=== PATIENT | female | born 1990 | race Caucasian/White ===

== ENCOUNTER 2016-07-08 22:45 | Inpatient (IN) | payer OTHER ==
[~2016-07-08] VITALS: Ht 175.3 cm; Wt 103.4 kg
[2016-07-09] MEDS ORDERED: Ondansetron 2 mg/mL 2 mL Inj IVPUSH ONE (00:55)
[2016-07-09] MEDS ORDERED: Lactated Ringer's 1,000 ML IV ONE (00:55)
[2016-07-09] MEDS ORDERED: Lactated Ringer's 1,000 ML IV PRN (02:56)
[2016-07-09] MEDS ORDERED: Methylergonovine 0.2 mg/mL Inj IM PRN ×2 (03:00→10:00)
[2016-07-09] MEDS ORDERED: fentaNYL-PF 50 mCg/mL 2 mL Inj IVPUSH PRN (03:00)
[2016-07-09] MEDS ORDERED: Oxytocin 30 Units/500 mL LR 30 UNITS in IV Premix 1 EACH IV PRN ×2 (03:00→10:00)
[2016-07-09] MEDS ORDERED: Ondansetron 2 mg/mL 2 mL Inj IVPUSH PRN ×2 (03:00→04:35)
[2016-07-09] MEDS ORDERED: Hemorrhage Kit, Post Partum XX ONE ×2 (03:00→10:00)
[2016-07-09] MEDS ORDERED: Sodium Chloride LOK Flush 10 mL Syringe IVFLUSH PRN (03:00)
[2016-07-09] MEDS ORDERED: Carboprost 250 mCg/mL Inj IM PRN ×2 (03:00→10:00)
[2016-07-09] MEDS ORDERED: Oxytocin 10 Unit/mL Inj IM PRN ×2 (03:00→10:00)
[2016-07-09 03:05] LABS: Mean Corpuscular Hemoglobin 31.1 pg (27.0-35.0); Mean Corpuscular Volume 91.1 fL (81-100)
[2016-07-09] MEDS ORDERED: Lactated Ringer's 1,000 ML IV SCH ×2 (04:34→09:59)
[2016-07-09] MEDS ORDERED: Lactated Ringer's 500 ML IV ONE (04:34)
[2016-07-09] MEDS ORDERED: fentaNYL 2 mCg/mL-Bupiv 0.125% 100 ML EPIDURAL SCH (04:35)
[2016-07-09] MEDS ORDERED: EPHEDrine Sulfate 50 mg/mL Inj IVPUSH PRN (04:35)
[2016-07-09] MEDS ORDERED: Atropine 1 mg/10 mL (Code) Syringe IVPUSH PRN (04:35)
--- NOTE | 2016-07-09 05:20 | PCM.HPANE ---
Patient Data Surgeon Admitting Provider:Gris De Jesus MD Attending Provider:Gris De Jesus MD Primary Care Physician:Sapna Other Provider:Michael Monique Anesthesia Reason for Visit Term Labor TERM LABOR Ht/WT & BMI Body Mass Index Allergies Coded Allergies: No Known Allergies (Unverified , 07/09/16) Past Anesthesia History Anesthesia History: Denies:: Abnormal Airway, Anesthesia Reactions, Difficult Intubation, Fam Anesthesia Reaction, Fam Malignant Hypertherm, Malignant Hyperthermia History History of ENT Problems?: No HEENT History: Denies:: Abnormal Airway Cataracts Difficult Intubation Dysphagia Glaucoma Hearing Problem Sinus Problem TMJ Denture Type: None Teeth Condition: Within Normal Limits Hx of Heart Problems?: No Cardiovascular History: Denies:: AICD Abdominal Aortic Aneurism Atrial Fibrillation Cardiac Surgery Chest Pain Congestive Heart Failure Coronary Artery Disease Edema Heart Murmur Hypertension Irregular Heartbeat Pacemaker Peripheral Vascular Rheumatic Fever Thrombophlebitis Valvular Heart Disease Hx of Respiratory Problem?: No Respiratory History: Denies:: Asthma COPD Chest Surgery Cough Dyspnea Emphysema Hemoptysis Oxygen Administration Pneumonia Pulmonary Embolism Tuberculosis Use of C-PAP Machine Use of Inhalers / NEBS Hx Neurologic Problems?: No Neurological History: Denies:: Alzheimer's Disease CVA Dementia Dizziness Headaches Multiple Sclerosis Parkinson's Disease Peripheral Neuropathy Seizures TIA Hx of GI Problems?: No Gastrointestinal History: Positive for:: Gastroesphageal Reflux Denies:: Cirrhosis Diverticulitis Gall Bladder Disease Gastrointestinal Bleeding Heartburn Hepatitis Hiatal Hernia Liver Disease Rectal Bleeding Hx of Problems?: No Genitourinary History: Denies:: HX of Hemodialysis Kidney Stones Urinary Tract Infection Female Hx: Positive for:: Currently Denies:: Endometriosis Pelvic Inflammatory Problems with Breasts? Skin History: Denies:: History Skin Disorders? Pressure Ulcers Hx Musculoskeletal Problems?: No Musculoskeletal History: Denies:: Back Injury Degenerative Joint Fibromyalgia Joint Replacement Musculoskeletal Trauma Myasthenia Gravis Osteoarthritis Rheumatoid Arthritis Systemic Lupus Hx of Psycho/Social Problems?: No Psycho Social History: Denies:: Anxiety Bipolar Disorder Hx Depression Suicide Attempt Hx Surgeries?: No Hx Any Other Health Problems?: No History Blood Transfusions: Denies:: Accept Blood Products? Blood Transfuse Reaction Blood Transfusions Hx Diabetes: No Smoking Status: Never Smoker Stop/Bang Risk Assessment Category Category 1A: Patient has history of documented sleep apnea, and HAS NOT received any narcotic, sedative or anesthesia administration during this stay. Category 1B: Patient has history of documented sleep apnea, and HAS received any narcotic , sedative or anesthesia administration during this stay Category 2: Patient has SUSPECTED Obstructive Sleep Apnea, and HAS received any narcotic , sedative or anesthesia administration during this stay. Category 3: Patient has SUSPECTED Obstructive Sleep Apnea and HAS NOT received narcotic, sedative or anesthesia administration during this stay. Category 4: Outpatient in Procedural Areas with known sleep apnea or who screen positive for High Risk via the STOP/BANG questionnaire. Exam Exam General Appearance: Alert, Oriented X3, Cooperative HEENT/AIRWAY: MP 2 Lungs: Clear to Auscultation Heart: Exam Unremarkable Meds/Labs/Diagnostics Admission Meds Current Medications Lactated Ringer's (Lr) 1,000 ml @ 0 mls/hr Q0M ONCE IV Last administered on 01:18; Start 07/09/16 at 00:55; Stop 07/09/16 at 00:56; Status DC Ondansetron HCl (Zofran Inj) 8 mg ONCE ONCE IVPUSH Last administered on 01:19; Start 07/09/16 at 00:55; Stop 07/09/16 at 00:56; Status DC Labs Test 07/09/16 01:10 White Blood Count 12.0th/mm3 (3.8-10.1) Red Blood Count 4.18mil/mm3 (3.90-5.20) Hemoglobin 13.0g/dL (12.0-15.6) Hematocrit 38.1% (35.0-46.0) Mean Corpuscular Volume 91.1fL (81-100) Mean Corpuscular Hemoglobin 31.1pg (27.0-35.0) Mean Corpuscular Hemoglobin Concent 34.1% (32.0-37.0) Red Cell Distribution Width 13.0% (12.3-15.4) Platelet Count 248bil/L (150-400) Plan Impression Patient chart reviewed, patient interviewed and anesthestic plan with risks, benefits, and alternatives discussed, and informed consent obtained. ASA Physical Status: ASA2 Mod Systemic Disease Anesthetic Plan: Epidural Bene/Risks/Altern/Consents: Yes HP Complete Prior to Induction: Yes Phan Whatley MD July 09, 2016 04:34
--- NOTE | 2016-07-09 07:35 | HP ---
[address] [address] HISTORY AND PHYSICAL PATIENT: CARMITA WYATT : 1990 MR#: [id number] ADMIT: 07/09/2016 JOB ID: [id number] HISTORY OF PRESENT ILLNESS: This is a 26-year-old female, 1 para 0, at 39 weeks . She presented to [facility] for contractions. When she presented to the [facility], she was vernon every 3-4 minutes. Her cervix was noted to be 2 cm dilated. Expectant management was down for 2 hours and re-examined. She was noted to be 4 cm dilated, 7% effaced. She is vernon every 3-4 minutes and tracing was category 1. This is a patient of our clinic. She started from 1st trimester with routine follow up. During her visit, it was noted that her blood type is A positive. Her H and H is 40/31.2. Varicella immune, rubella immune, RPR negative, HBsAg negative, HIV negative, and her GCT was 107. Strep B was negative. Her hCG was negative. She has no known drug allergies. PAST MEDICAL HISTORY: Eczema. PAST SURGICAL HISTORY: Declines. OBSTETRICAL HISTORY: This is her first . GYNECOLOGIC HISTORY: Not complicated. SOCIAL HISTORY: She is not smoking, not drinking alcohol, and declined drug usage. FAMILY HISTORY: Not significant, except that her maternal grandfather and mother both had a stroke. PHYSICAL EXAMINATION: Her blood pressure is in normal range. Pulse in normal range. She is afebrile. Cardiac: RR. No murmur. Pulmonary: Bilaterally clear. Abdomen; soft, . Contraction every 3-4 minutes. Tracing category 1. Cervix 4 cm dilated, 75% effaced. Extremities: Nontender. ASSESSMENT AND PLAN: 1. A 36-year-old female, 1 para 0, at 39 weeks , active labor. Will admit her to [facility]. 2. No antibiotic needed for negative GBS status. 3. The patient can get epidural for pain management if she prefers to. She can also get IV medication at this time if she prefers to. 4. At this time, we will do expected management to watch for labor progress.
[2016-07-09] MEDS ORDERED: Sodium Chloride LOK Flush 10 mL Syringe IVFLUSH SCH (08:30)
[2016-07-09] MEDS ORDERED: LANOlin HPA 7 Gm Ointment TOPICAL PRN (10:00)
[2016-07-09] MEDS ORDERED: Benzocaine (Dermoplast) 20% 60 Gm Spray TOPICAL PRN (10:00)
[2016-07-09] MEDS ORDERED: oxyCODONE-Acetamin 5-325 mg Tablet PO PRN (10:00)
[2016-07-09] MEDS ORDERED: Witch Hazel-Glycerin Pads TOPICAL PRN (10:00)
[2016-07-09] MEDS ORDERED: Measles-Mumps-Rubella Vaccine 0.5 mL Inj SUBQ ONE (10:00)
[2016-07-09] MEDS: Ascorbic Acid 500 mg Tablet PO SCH (17:52)
--- NOTE | 2016-07-09 19:46 | OP ---
[address] [address] OPERATIVE REPORT PATIENT: CARMITA WYATT : 1990 MR#: [id number] ADMIT: 07/09/2016 JOB ID: [id number] DATE OF SURGERY: 07/09/2016 SURGEON: Harriet Warren MD. PREOPERATIVE DIAGNOSIS(ES): Thirty-nine week intrauterine in active labor. POSTOPERATIVE DIAGNOSIS(ES): Thirty-nine week intrauterine in active labor. PROCEDURE PERFORMED: Spontaneous vaginal delivery. FINDINGS: Live-born male , born on July 09, 2017, at 0931 hours with Apgars of 9 at one minute and 10 at five minutes. 7#7oz COMPLICATIONS: None apparent. ESTIMATED BLOOD LOSS: 300 cc. FLUID REPLACEMENT: Crystalloid in labor. ANESTHESIA: Epidural. INDICATIONS: This is a 26-year-old, G1, P0, at approximately 39 weeks gestational age, who presented to the Center in the marine engineering consultant hours of July 09, complaining of regular uterine contractions. She was checked and noted to be 2 cm dilated. She was monitored and cervical change was noted to 4 cm dilated, at which point in time, she was admitted in active labor. She spontaneously ruptured on her own and an epidural was placed for pain relief. She progressed to complete around 7:30 a.m. on July 09, and after laboring down for less than an hour, she began to push, bringing the infant's vertex to the perineum. PROCEDURE: The patient was noted to be complete and pushing so she was placed in dorsal lithotomy position, prepped and draped in the usual sterile fashion for delivery. She pushed and head did deliver spontaneously in the direct OA position. The anterior shoulder delivered easily, followed by the posterior shoulder. The remainder of the then was easily delivered. There was a compound presentation with the infant's hand being near its face. After 60-second cord clamping delay, the cord was then clamped and cut and the was attended to by nursing personnel on the mother's abdomen, where the had been placed following delivery. Cord blood was then obtained. The placenta delivered intact spontaneously and was passed off the table. Thirty units of Pitocin was placed in the IV bag to firm the uterus. Examination of the cervix and vaginal vault did not reveal any lacerations. Examination of the perineum showed a second-degree laceration which was repaired with 3-0 Vicryl in the usual running fashion. There was also a 1 cm right perilabial laceration that was repaired with two interrupted stitches of 4-0 Vicryl. The patient tolerated this procedure well. Recovered in labor and delivery with her infant. All sponge, needle, and instrument counts were correct at the completion of the procedure. HUSAM
[2016-07-10 07:15] LABS: Mean Corpuscular Hemoglobin 30.2 pg (27.0-35.0); Mean Corpuscular Volume 93.1 fL (81-100)
--- NOTE | 2016-07-10 07:28 | PCM.DIOB ---
Obstetrical Disch Instruction Date of Service: July 10, 2016 Dates of Hospitalization Date of Hospital Admission July 09, 2016 at 02:50 Providers Admitting Physician: Gris De Jesus MD Primary Care Physician: Sapna Attending Physician: Gris De Jesus MD Discharge Diagnosis Discharge Diagnosis s/p spontaneous vaginal delivery Problems: Diet Discharge Diet: No restrictions Activity Discharge Activity-General: Pelvic Rest for 6 weeks, Be up and about, Balance rest and activity, Activity as pain allows Dressing and Incisional Care Hygiene: May shower, NO bathtub, hot tub or whirlpool, Sitz bath, Dermoplast spray, Witch Bettye pads Follow Up Plan Follow-up appointment: Weeks (6) Call your provider for: Fever or Chills, Shortness of breath, Heavy vaginal bleeding, Red painful breasts, Other (Fevers or chills, malodorous vaginal discharge ) Harriet Warren MD July 10, 2016 07:28
[2016-07-10] MEDS ORDERED: IBUP800T28 PO (07:30)
[2016-07-10] MEDS ORDERED: DOCU-41 PO (07:30)
[2016-07-10 07:35] VITALS: BP 110/73; PULSE 73; RESP 16
--- NOTE | 2016-07-10 08:13 | DIS ---
[address] [address] DISCHARGE SUMMARY PATIENT: CARMITA WYATT : 1990 MR#: [id number] ADMIT: 07/09/2016 JOB ID: [id number] DIS: ADMISSION DIAGNOSES: A 39 week intrauterine in active labor. DISCHARGE DIAGNOSIS: Status post spontaneous vaginal delivery with a liveborn male , born on July 09, 2017, at 0931 hours with Apgars of 9 at 1 minute, 10 at 5 minutes. weight is 7 pounds 7 ounces. PROCEDURE PERFORMED: Spontaneous vaginal delivery. REASON FOR ADMISISON AND HOSPITAL COURSE: This is a 26-year-old, G 1, P 0, who initially presented at 39 weeks gestational age on the fire prevention officer hours of July 09, 2016, complaining of regular uterine contractions. She was checked and noted to be 2 cm dilated and was monitored where at which point she exhibited cervical change to 4 cm dilated. She was then admitted in active labor. She spontaneously ruptured light meconium-stained amniotic fluid in the fire prevention officer hours of the and she progressed to complete by 7:30 a.m. on the same day. After laboring down for approximately 45 minutes to an hour she then began to push, bringing the infant's vertex down to the perineum. She then went on to deliver a live born male at 0931 hour on July 09. Please see the procedure note for details regarding this with an estimated blood loss of 300 cc. By day #1, her pain was well controlled. She was tolerating a diet, she was voiding and ambulating well on her own. She is breast-feeding without difficulty. Our marketing sales consultant had seen her on the day of delivery and was planning to visit again on the date of discharge. By day 1 when she was meeting all goals she was deemed stable for discharge. INSTRUCTIONS AT DISCHARGE: Advised to remain on pelvic rest for 6 weeks including no tampons, douching, or intercourse. She was asked to call with any signs symptoms of infection including fever greater than 100.5 degrees, severe pain, malodorous vaginal discharge, or bleeding greater than 1 pad per hour. MEDICATIONS AT DISCHARGE: Included: 1. Ibuprofen 800 mg p.o. t.i.d. 2. Colace 100 mg p.o. b.i.d. 3. She was asked to continue her vitamins as prescribed. Her blood type was A positive. She was rubella immune and varicella immune, and did not require any vaccinations. All questions and concerns of the patient were answered. She is deemed stable for discharge on day #1.
[2016-07-10] MEDS: Ascorbic Acid 500 mg Tablet PO SCH (09:00)
== END 2016-07-10 11:00 | disposition home or self-care (01) | DRG 775 ==
LOC: FBCO 22:45 → FBC 07-09 02:50
PROVIDERS: ADMIT Obstetrics & Gynecology; ATTEND Obstetrics & Gynecology
PROC: 10E0XZZ Delivery of Products of Conception, External Approach (ICD-10-PCS; principal; 2016-07-09)
PROC: 0KQM0ZZ Repair Perineum Muscle, Open Approach (ICD-10-PCS; 2016-07-09)
DX: O70.1 Second degree perineal laceration during delivery (principal); Z37.0 Single live birth; Z3A.39 39 weeks gestation of pregnancy; O77.0 Labor and delivery complicated by meconium in amniotic fluid